=== PATIENT | male | born 1990 | race Caucasian/White ===

== ENCOUNTER 2022-12-28 12:20 | Emergency (ER) | payer OTHER ==
[~2022-12-28] VITALS: Ht 185.4 cm; Wt 83.9 kg
[2022-12-28 12:29] VITALS: BP_SYST 158
[2022-12-28 15:35] VITALS: BP_SYST 158
== END 2022-12-28 15:35 | disposition home or self-care (01) ==
LOC: SED 12:20
DX: S00.83XA Contusion of other part of head, initial encounter (principal); Z79.899 Other long term (current) drug therapy; W22.8XXA Striking against or struck by other objects, initial encounter; Y93.89 Activity, other specified; Y92.89 Other specified places as the place of occurrence of the external cause; Y99.8 Other external cause status
CPT/HCPCS: 99281